=== PATIENT | female | born 1950 | race American Indian/Alaskan Native ===

== ENCOUNTER 2016-08-10 05:05 | Emergency (ER) | payer MEDICARE ==
[2016-08-10 06:30] LABS: Basophils % (Auto) 0.3 % (0.0-1.8); Eosinophils % (Auto) 0.1 % (0.0-4.3); Hematocrit 39.3 % (30.3-42.9); Hemoglobin 13.2 gm/dl (10.1-14.3); Mean Corpuscular HGB Conc 34 % (30-34); Mean Corpuscular Hemoglobin 27 pg (28-32); Mean Corpuscular Volume 81 fl (79-97); Platelet Count 122 K/mm3 (140-440); Red Blood Count 4.88 M/mm3 (3.65-5.03); Red Cell Distribution Width 14.7 % (13.2-15.2); White Blood Count 12.1 K/mm3 (4.5-11.0)
[2016-08-10 06:46] LABS: Alanine Aminotransferase 33 units/L (7-56); Albumin/Globulin Ratio 1.1 %; Alkaline Phosphatase 81 units/L (35-129); Anion Gap 18 mmol/L; BUN/Creatinine Ratio 13.75; Bilirubin,Total 0.9 mg/dL (0.1-1.2); Blood Urea Nitrogen 11 mg/dL (7-17); Calcium 9.5 mg/dL (8.4-10.2); Carbon Dioxide 24 mmol/L (22-30); Chloride 97.7 mmol/L (98-107); Glucose 122 mg/dL (65-100); Lipase 17 units/L (13-60); Potassium 3.7 mmol/L (3.6-5.0); Sodium 136 mmol/L (137-145); Total Protein 7.5 g/dL (6.3-8.2)
[2016-08-10 11:26] LABS: Bacteria,Urine 1+ /HPF (Negative); Bilirubin,Urine NEG (Negative); Blood,Urine MOD (Negative); Ketones,Urine NEG (Negative); Leukocyte Esterase,Urine LG (Negative); Mucus,Urine FEW /HPF; Nitrite,Urine NEG (Negative); Protein,Urine <15 mg/dL mg/dL (Negative)
[2016-08-10] MEDS ORDERED: TORADOL IM ONE (12:11)
[2016-08-10] MEDS ORDERED: MORPHINE IM ONE (12:11)
--- NOTE | 2016-08-10 12:13 | Emergency Department Report ---
HPI - General Chief Complaint: Abdominal Pain Time Seen by Provider: 08/10/16 12:07 - HPI HPI: 66-year-old Afro-K[place] female presents emergency Department with complaint of a 4 day history of abdominal pain that is in the upper abdomen and bilateral flanks. Patient also has noticed some blood in her urine. She says the pain is in her "kidneys" and 10 out of 10 in intensity. She went to the [facility] 2 days ago and says that they did nothing for her but give her pain medication. She says that pain medication is not helped. She denies any fever , nausea or vomiting. She has a history of asthma, COPD, diabetes, hypertension. No recent travel or sick contacts at home. ED Past Medical Hx - Past Medical History Previous Medical History?: Yes Hx Hypertension: Yes Hx Diabetes: Yes Hx Deep Vein Thrombosis: Yes (30 years ago) Hx Pulmonary Embolism: Yes (30 years ago) Hx Asthma: Yes Hx COPD: Yes - Surgical History Past Surgical History?: Yes Additional Surgical History: L and R knee. tubal ligation. tumor removed from bladder - Social History Smoking Status: Former Smoker Substance Use Type: Alcohol - Medications Home Medications: Home Medications Medication Instructions Recorded Confirmed Last Taken Type Aspirin [Aspirin BABY CHEW TAB] 81 mg PO QDAY 08/02/15 08/02/15 08/01/15 History Tiotropium Lisman [Spiriva 2.5 gm IH QDAY 08/02/15 08/02/15 08/02/15 History Respimat] Triamcinolone Acetonide [Nasacort 10.8 ml NS QDAY 08/02/15 08/02/15 08/02/15 History SPRAY] metFORMIN [Glucophage] 1,000 mg PO BID 08/02/15 08/02/15 07/31/15 History ALBUTEROL Inhaler [ProAir HFA 2 puff IH QID PRN #1 inha 08/12/15 Unknown Rx Inhaler] Arformoterol Nebu [Brovana Nebu] 15 mcg IH Q12HRT #1 ml 08/12/15 Unknown Rx Budesonide [Pulmicort Respules] 0.5 mg IH Q12HRT #1 nebu 08/12/15 Unknown Rx Pantoprazole [Protonix TAB] 40 mg PO DAILY #30 tablet 08/12/15 Unknown Rx Prednisone [predniSONE 5 mg (6-Day 5 mg PO .TAPER #1 tab.ds.pk 08/12/15 Unknown Rx Pack, 21 Tabs)] Tiotropium Lisman [Spiriva 4 gm IH DAILY #1 mist.inhal 08/12/15 Unknown Rx Respimat] HYDROcodone/APAP 5-325 [[place] 1 each PO Q6HR PRN #10 tablet 08/10/16 Unknown Rx 5/325] Levofloxacin [Levaquin] 750 mg PO QDAY #7 tablet 08/10/16 Unknown Rx ED Review of Systems ROS: Stated complaint: ABD PAIN Other details as noted in HPI Comment: All other systems reviewed and negative Constitutional: denies: chills, fever Eyes: denies: eye pain, eye discharge, vision change ENT: denies: ear pain, throat pain Respiratory: denies: cough, shortness of breath, wheezing Cardiovascular: denies: chest pain, palpitations Gastrointestinal: abdominal pain. denies: nausea, vomiting Genitourinary: hematuria. denies: dysuria Musculoskeletal: denies: back pain, joint swelling, arthralgia Skin: denies: rash, lesions Neurological: denies: headache, weakness, paresthesias Physical Exam - Physical Exam Vital Signs: Vital Signs 08/10/16 05:13 Temperature 98.1 F Pulse Rate 79 Respiratory 22 Rate Blood Pressure 160/92 Blood Pressure 160/92 [Left] O2 Sat by Pulse 96 Oximetry Physical Exam: GENERAL: The patient is well-developed well-nourished. HEENT: Normocephalic. Atraumatic. Extraocular motions are intact. Patient has moist mucous membranes. Pupils equal reactive to light bilaterally. NECK: Supple. Trachea is midline. CHEST/LUNGS: Clear to auscultation. There is no respiratory distress noted. HEART/CARDIOVASCULAR: Regular. There is no tachycardia. There is no gallop rub or murmur. ABDOMEN: Abdomen is soft. Generalized tenderness to palpation of the abdomen. No guarding or rebound tenderness. No peritoneal signs. Patient has normal bowel sounds. There is no abdominal distention. SKIN: There is no rash. There is no edema. There is no diaphoresis. NEURO: The patient is awake, alert, and oriented. The patient is cooperative. The patient has no focal neurologic deficits. The patient has normal speech. MUSCULOSKELETAL: There is no tenderness or deformity. There is no limitation range of motion. There is no evidence of acute injury. ED Course Vital Signs 08/10/16 05:13 Temperature 98.1 F Pulse Rate 79 Respiratory 22 Rate Blood Pressure 160/92 Blood Pressure 160/92 [Left] O2 Sat by Pulse 96 Oximetry ED Medical Decision Making - Lab Data Result diagrams: 08/10/16 05:56 08/10/16 05:56 - Radiology Data Radiology results: report reviewed CT of the abdomen and pelvis without contrast shows edema of the mesentery may be related to enteritis. Normal adrenals and kidneys, normal bladder, no free air or fluid. No evidence of adenopathy. No abdominal aneurysm. Gaseous colon with stool but no bowel distention. No evidence of appendicitis. Diverticulosis without diverticulitis. Chest x-ray was read by radiology as some haziness to the right base that could be an infiltrate. - Medical Decision Making 66-year-old female presents with generalized abdominal pain going on for the past 4 days. Most of her labs are unremarkable however her urinalysis does show a urinary tract infection and some hematuria. She has a remote history of kidney stones and with her hematuria and abdominal pain a CT of the abdomen and pelvis was done. There was no stones, ureter or intestinal obstruction, appendicitis. What was found was some edema of the mesentery without any adenopathy and it was noted that could be related to enteritis. Since the patient has some hazy infiltrate read on her chest x-ray to the right base, a urinary tract infection, and some intra-abdominal discomfort, she will be placed on Levaquin as that would cover all of these infections. The patient says that she already has good follow-up with primary care and gastroenterology. She was reevaluated and says she is greatly improved in terms of her discomfort. Vital signs stable throughout her ED course. The majority of her labs and unremarkable. She appears safe for discharge home at this time. She will return to the ER with any worsening of her symptoms or any acute distress. - Differential Diagnosis gastroenteritis, nephrolithiasis, pyelonephritis, UTI Critical Care Time: No Critical care attestation.: If time is entered above; I have spent that time in minutes in the direct care of this critically ill patient, excluding procedure time. ED Disposition Clinical Impression: Enteritis Abdominal pain Qualifiers: Abdominal location: generalized Qualified Code(s): R10.84 - Generalized abdominal pain UTI (urinary tract infection) Qualifiers: Urinary tract infection type: acute cystitis Hematuria presence: with hematuria Qualified Code(s): N30.01 - Acute cystitis with hematuria Disposition: DISCHARGED TO HOME OR SELFCARE Is pt being admited?: No Does the pt Need Aspirin: No Condition: Stable Instructions: Abdominal Pain (ED), Urinary Tract Infection in Women (ED) Additional Instructions: Please follow-up with your primary care doctor and ride operator in the next 2 days. Return to the emergency department with any worsening of your symptoms or any acute distress. You've been prescribed a medication that is sedating. Therefore this medication cannot be mixed with alcohol, or taken prior to driving, working, or being responsible for children. Prescriptions: HYDROcodone/APAP 5-325 [[place] 5/325] 1 each PO Q6HR PRN #10 tablet PRN Reason: Pain Levofloxacin [Levaquin] 750 mg PO QDAY #7 tablet Referrals: PRIMARY CARE, [Primary Care Provider] - 3-5 Days Time of Disposition: 14:16
[2016-08-10] MEDS ORDERED: DUONEB 0.5 MG-3 MG/3 ML SOLN IH ONE (12:14)
--- NOTE | 2016-08-10 12:38 | XRay Report ---
Single view chest: History: Wheezing. Findings: Normal cardiomediastinal silhouette. Trachea is midline. Suspicious faint infiltrates are noted in the right lower lobe. Normal CP angles. Impression: Faint infiltrates right lower lobe suggestive of pneumonitis.
[2016-08-10] MEDS ORDERED: MACROBID PO ONE (13:40)
--- NOTE | 2016-08-10 13:45 | Cat Scan Report ---
CT scan of abdomen and pelvis without IV contrast: History: Abdominal pain. Findings: Bibasilar infiltrates are chronic interstitial lung changes. No pleural or pericardial effusion. CT scan of chest may be advised. Normal liver spleen pancreas and gallbladder. Normal adrenals and kidney parenchyma. Normal bladder. No free intraperitoneal fluid or. No evidence of adenopathy. Arteriosclerotic abdominal aorta without aneurysm. Gaseous colon with stool in colon. No bowel distention. No evidence of appendicitis. Diverticulosis sigmoid colon. There is edema noted noted of the mesentery. Impression: Edema of the mesentery. May be related to enteritis.
[2016-08-10 15:06] VITALS: BP 111/52
== END 2016-08-10 15:06 | disposition home or self-care (01) ==
LOC: ED 05:05
DX: K52.9 Noninfective gastroenteritis and colitis, unspecified (principal); N30.01 Acute cystitis with hematuria; I10 Essential (primary) hypertension; E11.9 Type 2 diabetes mellitus without complications; J45.909 Unspecified asthma, uncomplicated; J44.9 Chronic obstructive pulmonary disease, unspecified; Z86.718 Personal history of other venous thrombosis and embolism; Z86.711 Personal history of pulmonary embolism; Z98.51 Tubal ligation status; Z87.891 Personal history of nicotine dependence; Z79.82 Long term (current) use of aspirin
CPT/HCPCS: 36415; 71010; 74176; 80053; 81001; 83690; 85025; 94640; 96372; 99285; J1885; J2270

== ENCOUNTER 2016-10-01 09:06 | Outpatient (CLI) | payer MEDICARE ==
[2016-10-01] MEDS ORDERED: BENADRYL ONE (15:30)
[2016-10-01] MEDS ORDERED: PEPCID IV ONE (15:30)
[2016-10-01] MEDS ORDERED: BENADRYL IV ONE (16:00)
[2016-10-01] MEDS ORDERED: PEPCID IV SCH (16:00)
[2016-10-01] MEDS ORDERED: NACL ONE (16:05)
--- NOTE | 2016-10-01 17:58 | Cat Scan Report ---
FINAL REPORT PROCEDURE: CT ANGIO ABD/FEMORAL ABD AORTA TECHNIQUE: Computerized axial tomographic angiography of the aortoiliac system with bilateral lower extremity runoff was performed after the IV injection of nonionic iodinated contrast including image processing. The image data was postprocessed using 2-dimensional multiplanar reformatted (MPR) and 3-dimensional (MIP and/or volume rendered) techniques. HISTORY: VASCULAR DISORDER OF INTESTINE COMPARISON: CT exam dated August 10, 2016 FINDINGS: Hypoventilatory changes are seen in the lungs. Rounded alveolar opacity in the right lung base is probably due to rounded atelectasis with mild rounded pneumonia not completely excluded. Previously ground-glass interstitial densities were seen more diffusely in this area. There may be fatty infiltration of the liver and mild hepatomegaly. Gallbladder and pancreas appear normal. Adrenal glands and kidneys display no abnormalities. Bladder appears normal. No free pelvic fluid is seen. There is mild diffuse hazy density in the small bowel mesentery, similar to prior study given differences in technique. Few tiny reactive mesenteric lymph nodes are seen. No evidence of colitis is seen. No small bowel wall thickening is seen. No evidence of bowel obstruction is seen. Is normal in size with mild partially calcified plaque. No stenosis is seen in the origins of the SMA or celiac axis. Mesenteric arterial branches appear to enhance normally. Single right renal artery is seen with 2 left renal arteries. No evidence of significant renal artery stenosis is seen. Mild calcified plaque is seen in the iliac arteries without evidence of hemodynamically significant stenosis. Images through the right lower extremity reveal minimal calcified plaque in the right ARTIFICIAL INSEMINATOR, SFA, and popliteal artery. Three-vessel runoff is seen at the ankle. Subcutaneous edema is seen in both ankles and feet. Prominent arthritic changes are seen in the knees with more mild arthritic changes in the hips and ankles. Images through the left lower extremity reveal no plaque in the left ARTIFICIAL INSEMINATOR, SFA, or popliteal artery. Anterior tibial artery is not well seen distally despite delayed imaging. This may be due to congenital variant as focus of stenosis is not identified. A few phleboliths are seen in the subcutaneous soft tissues. IMPRESSION: Mild atherosclerotic disease is seen in the abdomen and pelvis without evidence of significant stenosis. Hazy edema in the small bowel mesentery with small reactive lymph nodes could be due to mesenteric adenitis or may be reaction to small bowel inflammation. However, no small bowel wall thickening is identified. No hemodynamically significant stenosis is suggested in the bilateral lower extremities. Likely atelectasis is seen in the lung bases. Mild rounded pneumonia at the right lung base is not excluded.
== END 2016-10-01 09:07 | disposition home or self-care (01) ==
LOC: CT 09:06
PROVIDERS: ATTEND Surgery Vascular Surgery
DX: K55.9 Vascular disorder of intestine, unspecified (principal); J18.9 Pneumonia, unspecified organism; J98.11 Atelectasis; K76.89 Other specified diseases of liver; R16.0 Hepatomegaly, not elsewhere classified; I70.8 Atherosclerosis of other arteries; R60.9 Edema, unspecified; I87.8 Other specified disorders of veins
CPT/HCPCS: 75635; 96374; 96375; J1200; J1720; Q9967

== ENCOUNTER 2017-01-19 10:28 | Outpatient (CLI) | payer MEDICARE ==
--- NOTE | 2017-01-19 13:01 | Cat Scan Report ---
CT ABDOMEN AND PELVIS WITHOUT CONTRAST INDICATION: Acute cystitis. COMPARISON: 08/10/2016 FINDINGS: Abdomen and pelvis CT performed following contrast only. LUNG BASES: Bibasilar scarring/chronic infiltrates again noted, right more than left with slight bronchiectasis. No effusions. Nonspecific distal esophageal wall prominence/thickening, not excluded for gastroesophageal reflux and/or hiatal hernia, amongst others. ABDOMEN: Please note that sensitivity to detect small visceral lesions is limited due to the absence of intravenous contrast. Diffuse fatty hepatic infiltration with slight pericholecystic sparing. Right hepatic lobe approximately 19 cm in midclavicular length. Otherwise grossly unremarkable unenhanced liver, spleen, gallbladder, pancreas, adrenals, nonaneurysmal abdominal aorta with atherosclerotic calcifications, IVC and kidneys. Slight distal aortic ectasia. No radiopaque stones or ascites. Few small, subcentimeter mesenteric lymph nodes however again noted with surrounding haziness as on axial images 100-250, amongst others with various differential considerations including edema, inflammation, idiopathic or even neoplastic as lymphoma, amongst others. Opacified GI tract nonobstructive and within normal limits. Mild colonic stool. Normal appendix. PELVIS: Uterus surgically absent. Few small pelvic phleboliths. Unremarkable non-opacified urinary bladder and the rectosigmoid. No free fluid or significant adenopathy. Mild multilevel imaged spinal degenerative spurring. Right more than left hip degeneration as well. CONCLUSION: 1. Mesenteric haziness/"mena mesentery" again noted, as described. 2. No acute CT abnormality with various other findings, including fatty liver, chronic bibasilar infiltrates, hysterectomy and normal appendix, amongst others, as above. Please correlate. Thank you for the opportunity to participate in this patient's care.
== END 2017-01-19 10:29 | disposition home or self-care (01) ==
LOC: CT 10:28
PROVIDERS: ATTEND Urology
DX: N30.01 Acute cystitis with hematuria (principal); R91.8 Other nonspecific abnormal finding of lung field; K76.0 Fatty (change of) liver, not elsewhere classified; J47.9 Bronchiectasis, uncomplicated; I70.0 Atherosclerosis of aorta; I77.819 Aortic ectasia, unspecified site; I87.8 Other specified disorders of veins; M25.852 Other specified joint disorders, left hip; M25.851 Other specified joint disorders, right hip; I10 Essential (primary) hypertension; J45.909 Unspecified asthma, uncomplicated; Z90.710 Acquired absence of both cervix and uterus; Z87.891 Personal history of nicotine dependence
CPT/HCPCS: 74176

== ENCOUNTER 2017-01-23 12:59 | Outpatient (CLI) | payer MEDICARE | END 2017-01-23 13:00 | disposition home or self-care (01) | LOC: CT 12:59 | PROVIDERS: ATTEND Internal Medicine Critical Care Medicine | DX: J18.9 Pneumonia, unspecified organism (principal); I10 Essential (primary) hypertension; J44.9 Chronic obstructive pulmonary disease, unspecified; J45.909 Unspecified asthma, uncomplicated; Z87.891 Personal history of nicotine dependence | CPT/HCPCS: 71250 ==

== ENCOUNTER 2017-04-29 10:13 | Outpatient (CLI) | payer MEDICARE ==
--- NOTE | 2017-04-29 11:21 | Cat Scan Report ---
CT scan of chest without IV contrast: History: Known resolving pneumonia. Findings: No endobronchial or mediastinal mass. Subcentimeter mediastinal lymph nodes. No pleural or pericardial effusion. Ill-defined linear pleural based densities right lower lobe suggestive of discoid atelectasis or scarring. Pleural-based scarring left lower lobe. No definite consolidation. Impression: No acute consolidation or mass. Findings as detailed above.
== END 2017-04-29 10:14 | disposition home or self-care (01) ==
LOC: CT 10:13
PROVIDERS: ATTEND Internal Medicine Critical Care Medicine
DX: J15.9 Unspecified bacterial pneumonia (principal); J98.4 Other disorders of lung; Z87.891 Personal history of nicotine dependence
CPT/HCPCS: 71250